=== PATIENT | male | born 1980 | race African-American/Black ===

== ENCOUNTER 2017-05-27 15:58 | Emergency (ER) | payer OTHER ==
[~2017-05-27] VITALS: Ht 170.2 cm; Wt 70.3 kg
[2017-05-27 16:12] VITALS: BP 133/85
[2017-05-27] MEDS ORDERED: LIDOCAINE 1% HCL (LOCAL ANESTH.) INJ 20ML MDV IJ ONE (17:15)
[2017-05-27] MEDS ORDERED: NEOMYCIN-BACITRACIN-POLYM UNITDOSE PKG TOP OINT TOP ONE (17:15)
== END 2017-05-27 18:02 ==
LOC: ER 15:58
DX: S01.81XA Laceration without foreign body of other part of head, initial encounter (principal); W51.XXXA Accidental striking against or bumped into by another person, initial encounter; Y93.89 Activity, other specified; Y92.89 Other specified places as the place of occurrence of the external cause; Y99.8 Other external cause status
CPT/HCPCS: 12011; 99283; J2001; 12001